=== PATIENT | female | born 1995 | race Caucasian/White ===

== ENCOUNTER 2017-09-06 10:44 | Emergency (ER) | payer SELFPAY ==
[2017-09-06 10:45] VITALS: BP 121/81
[2017-09-06] MEDS ORDERED: ONDA4TAB10 PO (11:30)
--- NOTE | 2017-09-06 11:32 | PHYS DOC ---
General Chief Complaint: NAUSEA/VOMITING/DIARRHEA Stated Complaint: VOMITING Time Seen by MD: 11:29 Source: patient Exam Limitations: no limitations Problems: History of Present Illness Initial Comments Pt is 22/F to ED with 1 day h/o abdominal cramping, n/v. Pt states past day worsening intermittent abdominal cramping, epigastric discomfort, n/v with PO intolerance. Few loose stools, no travel/bad food exposure. No focal abdominal pain complaints, no prearrival treatment. +chills /myalgias, no measured temps, no urinary sx. Timing/Duration: 24 hours Severity: moderate Modifying Factors: worse with eating Associated Symptoms: malaise, nausea/vomiting Allergies: Coded Allergies: No Known Drug Allergies (Unverified , 09/06/17) Past Medical History Medical History: no pertinent history Surgical History: other (CS, tonsillectomy, ankle, D/C) Social History Smoker: cigarettes Alcohol: none Drugs: none Review of Systems Constitutional: see HPI Respiratory: denies cough, denies shortness of breath Cardiovascular: denies chest pain, denies palpitations Gastrointestinal: see HPI Genitourinary: denies dysuria, denies frequency Musculoskeletal: denies back pain, denies joint swelling, denies neck pain Psychiatric/Neurological: denies headache, denies numbness, denies paresthesia Physical Exam General Appearance: WD/WN, mild distress Eyes: bilateral eye normal inspection, bilateral eye PERRL, bilateral eye EOMI Ear, Nose, Throat: hearing grossly normal, normal ENT inspection, normal pharynx Neck: non-tender, supple Respiratory: chest non-tender, lungs clear, normal breath sounds Cardiovascular: normal peripheral pulses, regular rate, rhythm Gastrointestinal: soft (ND, neg mcburney/melgoza, generalized abd muscle TTP no r/g/mass, BS nl) Back: no CVA tenderness, no vertebral tenderness Extremities: non-tender, normal inspection Neurologic/Psychiatric: candy spreader II-XII nml as tested, no motor/sensory deficits, alert, normal mood/affect, oriented x 3 Skin: normal color, warm/dry Orders, Labs, Meds I discussed s/s to monitor and indications for urgent return. Work note/rx provided, pt requests meds/discharge refuses workup. Advised to stop smoking Departure Time of Disposition: 11:30 Disposition: 01 HOME, SELF-CARE Diagnosis: gastroenteritis, likely viral Condition: GOOD Patient Instructions: Viral Gastroenteritis, [id number] Additional Instructions: Off work through September 08, note given. Aggressive hydration with Gatorade or water. [id number] Tylenol or ibuprofen as needed. Prescription: Zofran ODT Follow-up with your doctor in 3-5 days if no improvement. Return to ED with new or changing symptoms. ELSLIE RUBIO DO Sep 06, 2017 11:31
[2017-09-06] MEDS ORDERED: ONDANSETRON ODT 4 MG TAB.RAPDIS PO ONE (12:00)
== END 2017-09-06 11:38 | disposition home or self-care (01) ==
LOC: ER 10:44
DX: K52.9 Noninfective gastroenteritis and colitis, unspecified (principal); F17.210 Nicotine dependence, cigarettes, uncomplicated; Z98.890 Other specified postprocedural states
CPT/HCPCS: 99283; Q0162; 81025

== ENCOUNTER 2017-10-21 20:41 | Emergency (ER) | payer SELFPAY ==
[2017-10-21 20:41] VITALS: BP 109/69
[~2017-10-21 20:41] MED LIST: ONDA4TAB10 PO
--- NOTE | 2017-10-21 21:04 | ED.ADGEN ---
Past History Past Medical History: No Pertinent History Past Surgical History: , Tonsillectomy, Other Alcohol Use: None Drug Use: None Adult General Chief Complaint Chief Complaint " I got really bad dental pain.." HPI HPI Patient is a 22 year old female who presents with dental pain and fx tooth 2. Old fx, but multiple carries and gingivitis. No trismus. No significant adenopathy. No history immunosuppression. Review of Systems Review of Systems Constitutional: Denies fever or chills [] Eyes: Denies change in visual acuity, redness, or eye pain [] HENT: Denies nasal congestion or sore throat [ Complaint of dental pain Respiratory: Denies cough or shortness of breath [] Cardiovascular: No additional information not addressed in HPI [] GI: Denies abdominal pain, nausea, vomiting, bloody stools or diarrhea [] : Denies dysuria or hematuria [] Musculoskeletal: Denies back pain or joint pain [] Integument: Denies rash or skin lesions [] Neurologic: Denies headache, focal weakness or sensory changes [] Endocrine: Denies polyuria or polydipsia [] All other systems were reviewed and found to be within normal limits, except as documented in this note. Family History Family History Noncontributory Current Medications Current Medications Current Medications Medications (Trade) Dose Ordered Sig/Fabiano Start Time Stop Time Status Last Admin Dose Admin Amoxicillin (Amoxil) 500 mg 1X ONCE 10/21/17 21:30 10/21/17 21:31 DC Ketorolac Tromethamine (Toradol) 60 mg 1X ONCE 10/21/17 21:30 10/21/17 21:31 DC Allergies Allergies Allergies Coded Allergies Type Severity Reaction Last Updated Verified No Known Drug Allergies 09/06/17 No Physical Exam Physical Exam Constitutional: Well developed, well nourished, no acute distress, non-toxic appearance. [] HENT: Normocephalic, atraumatic, bilateral external ears normal, oropharynx moist, no oral exudates, nose normal. Dental caries and dental pain as per HPI Eyes: PERRLA, EOMI, conjunctiva normal, no discharge. [] Neck: Normal range of motion, no tenderness, supple, no stridor. [] Cardiovascular:Heart rate regular rhythm, no murmur [] Lungs & Thorax: Bilateral breath sounds equal at apexes with scattered wheezes on auscultation [] Abdomen: Bowel sounds normal, soft, no tenderness, no masses, no pulsatile masses. [] Skin: Warm, dry, no erythema, no rash. [] Back: No tenderness, no CVA tenderness. [] Extremities: No tenderness, no cyanosis, no clubbing, ROM intact, no edema. [] Neurologic: Alert and oriented X 3, normal motor function, normal sensory function, no focal deficits noted. [] Psychologic: Affect normal, judgement normal, mood normal. [] EKG EKG [] Radiology/Procedures Radiology/Procedures [] Course & Med Decision Making Course & Med Decision Making Pertinent Labs and Imaging studies reviewed. (See chart for details). Must follow-up with Dentist. . Take amoxicillin 500 x3 times a day. Take Tylenol and ibuprofen for pain. May take Vicoprofen up 4 times a day for marked pain. Must follow-up [] Final Impression Final Impression 1. Dental Pain[] 2. Dental Carries 3. Fx. Molar 2 Problems: Dragon Disclaimer Dragon Disclaimer This electronic medical record was generated, in whole or in part, using a voice recognition dictation system. KAN CLINE MD Oct 21, 2017 21:04
[2017-10-21] MEDS ORDERED: HYDR-79 PO (21:24)
[2017-10-21] MEDS ORDERED: AMOX-260 PO (21:24)
[2017-10-21] MEDS ORDERED: AMOXICILLIN 250 MG CAPSULE PO ONE (21:30)
[2017-10-21] MEDS ORDERED: KETOROLAC 60 MG/2 ML VIAL. IM ONE (21:30)
== END 2017-10-21 21:35 | disposition home or self-care (01) ==
LOC: ER 20:41
DX: K02.9 Dental caries, unspecified (principal); S02.5XXA Fracture of tooth (traumatic), initial encounter for closed fracture; X58.XXXA Exposure to other specified factors, initial encounter; Y93.89 Activity, other specified; Y99.8 Other external cause status; Y92.89 Other specified places as the place of occurrence of the external cause
CPT/HCPCS: 96372; 99283; J1885

== ENCOUNTER 2017-12-21 23:56 | Emergency (ER) | payer SELFPAY ==
[~2017-12-21] VITALS: Ht 162.6 cm; Wt 72.6 kg
[~2017-12-21 23:56] MED LIST changes: +AMOX-260 PO; +HYDR-79 PO
[2017-12-22 00:05] VITALS: BP 132/86
--- NOTE | 2017-12-22 00:15 | ED.ADGEN ---
Past History Past Medical History: No Pertinent History Past Surgical History: No Surgical History Alcohol Use: Occasionally Drug Use: None Adult General Chief Complaint Chief Complaint " I got bad dental pain... I can't afford the $400 dollars to see the dentist to get these teeth fixed..." " I was here in September for the same thing.. I got this impacted molar.. and flap skin that get food stuck under.. it..." HPI HPI Patient is a 22 year old female who presents with with right molar pain teeth 32 , 31. Patient has a flap of skin over molar 32 which appears to be inflamed. Patient seen previously for the same complaint last month. Patient denies any history of immunosuppression. Patient has no trismus. No adenopathy. Review of Systems Review of Systems Constitutional: Denies fever or chills [] Eyes: Denies change in visual acuity, redness, or eye pain [] HENT: Denies nasal congestion or sore throat []complaints of dental pain Respiratory: Denies cough or shortness of breath [] Cardiovascular: No additional information not addressed in HPI [] GI: Denies abdominal pain, nausea, vomiting, bloody stools or diarrhea [] : Denies dysuria or hematuria [] Musculoskeletal: Denies back pain or joint pain [] Integument: Denies rash or skin lesions [] Neurologic: Denies headache, focal weakness or sensory changes [] Endocrine: Denies polyuria or polydipsia [] All other systems were reviewed and found to be within normal limits, except as documented in this note. Family History Family History Noncontributory Current Medications Current Medications Current Medications Medications (Trade) Dose Ordered Sig/Fabiano Start Time Stop Time Status Last Admin Dose Admin Cephalexin HCl (Keflex) 250 mg STK-MED ONCE 12/22/17 00:37 12/22/17 00:38 DC Ketorolac Tromethamine (Toradol) 60 mg STK-MED ONCE 12/22/17 00:37 12/22/17 00:38 DC Allergies Allergies Allergies Coded Allergies Type Severity Reaction Last Updated Verified No Known Drug Allergies 09/06/17 No Physical Exam Physical Exam Constitutional: Well developed, well nourished, in moderately acute distress, non-toxic appearance. [] HENT: Normocephalic, atraumatic, bilateral external ears normal, oropharynx moist, no oral exudates, nose normal. Dental caries and gingivitis. Primary of pain is molar area 32 and 31. Eyes: PERRLA, EOMI, conjunctiva normal, no discharge. [] Neck: Normal range of motion, no tenderness, supple, no stridor. [] Cardiovascular:Heart rate regular rhythm, no murmur [] Lungs & Thorax: Bilateral breath sounds equal apex with scattered wheezes auscultation [] Abdomen: Bowel sounds normal, soft, no tenderness, no masses, no pulsatile masses. [] Skin: Warm, dry, no erythema, no rash. [] Back: No tenderness, no CVA tenderness. [] Extremities: No tenderness, no cyanosis, no clubbing, ROM intact, no edema. [] Neurologic: Alert and oriented X 3, normal motor function, normal sensory function, no focal deficits noted. [] Psychologic: Affect normal, judgement normal, mood normal. [] Current Patient Data Vital Signs Vital Signs Date Time Temp Pulse Resp B/P (MAP) Pulse Ox O2 Delivery O2 Flow Rate FiO2 12/22/17 00:05 98.7 79 18 95 Room Air Lab Results Laboratory Tests Test 12/22/17 00:20 12/22/17 00:25 12/22/17 02:30 Urine Collection Type Void Urine Color Yellow Urine Clarity Clear Urine pH 5.5 Urine Specific [place] >=1.030 Urine Protein Trace (NEG-TRACE) Urine Glucose (UA) Neg mg/dL (NEG) Urine Ketones (Stick) Neg mg/dL (NEG) Urine Blood Neg (NEG) Urine Nitrite Neg (NEG) Urine Bilirubin Neg (NEG) Urine Urobilinogen Dipstick 0.2 mg/dL (0.2 mg/dL) Urine Leukocyte Esterase Neg (NEG) Urine RBC 0 /HPF (0-2) Urine WBC 0 /HPF (0-4) Urine Squamous Epithelial Cells Occ /LPF Urine Bacteria 0 /HPF (0-FEW) POC Urine HCG, Qualitative hcg negative (Negative) Urine Opiates Screen Neg (NEG) Urine Methadone Screen Neg (NEG) Urine Barbiturates Neg (NEG) Urine Phencyclidine Screen Neg (NEG) Urine Amphetamine/Methamphetamine Neg (NEG) Urine Benzodiazepines Screen Neg (NEG) Urine Cocaine Screen Pos (NEG) Urine Cannabinoids Screen Pos (NEG) Urine Ethyl Alcohol Neg (NEG) EKG EKG [] Radiology/Procedures Radiology/Procedures [] Course & Med Decision Making Course & Med Decision Making Pertinent Labs and Imaging studies reviewed. (See chart for details) Principal mouth with hydrogen peroxide 4 times a day to remove accumulation of fluid debris under skin flap on right posterior molar 32. Take Tylenol and ibuprofen for pain. Take Keflex 500 mg 3 times a day. Must follow-up with dentist. Follow-up at [facility] oral surgery or dental school. [] Final Impression Final Impression 1. Dental Pain[] 2. Dental Carries 3. Gingivitis Problems: Dragon Disclaimer Dragon Disclaimer This electronic medical record was generated, in whole or in part, using a voice recognition dictation system. KAN CLINE MD Dec 22, 2017 00:14
[2017-12-22] MEDS ORDERED: CEPH-264 PO (00:35)
[2017-12-22] MEDS ORDERED: CEPHALEXIN 250 MG CAPSULE ONE (00:37)
[2017-12-22] MEDS ORDERED: KETOROLAC 60 MG/2 ML VIAL. IM ONE ×2 (00:37→00:45)
[2017-12-22] MEDS ORDERED: CEPHALEXIN 250 MG CAPSULE PO ONE (00:45)
[2017-12-22 02:31] LABS: BARBITURATES NEG (NEG); BENZODIAZEPINES NEG (NEG); CANNABINOIDS POS (NEG); COCAINE POS (NEG); METHADONE NEG (NEG); OPIATES NEG (NEG); PHENCYCLIDINE NEG (NEG)
[2017-12-22 02:52] LABS: AMPHETAMINE/METHAMPHETAMINE NEG (NEG)
[2017-12-22 03:03] LABS: BILIRUBIN,URINE NEG (NEG); CLARITY,URINE CLEAR; COLOR,URINE YELLOW; GLUCOSE,URINE NEG (NEG); NITRITE,URINE NEG (NEG); RBC,URINE 0 /HPF (0-2); UROBILINOGEN,URINE 0.2 mg/dL (0.2 mg/dL)
[2017-12-22 03:04] LABS: BACTERIA,URINE 0 /HPF (0-FEW); SQUAMOUS EPITHELIAL CELL,UR OCC /LPF; WBC,URINE 0 /HPF (0-4)
== END 2017-12-22 00:55 | disposition home or self-care (01) ==
LOC: ER 23:56
DX: K02.9 Dental caries, unspecified (principal); K05.10 Chronic gingivitis, plaque induced
CPT/HCPCS: 36415; 80307; 81001; 81025; 96372; 99284; J1885; G0479

== ENCOUNTER 2018-04-12 03:21 | Emergency (ER) | payer SELFPAY ==
[~2018-04-12] VITALS: Ht 162.6 cm; Wt 49.4 kg
[~2018-04-12 03:21] MED LIST changes: +CEPH-264 PO
[2018-04-12 03:31] VITALS: BP 133/73
--- NOTE | 2018-04-12 03:32 | ED.ADGEN ---
Past History Past Medical History: Anxiety, Other Past Surgical History: Tonsillectomy Smoking: Cigarettes Alcohol Use: Occasionally Drug Use: None Adult General Chief Complaint Chief Complaint ".. I got bad teeth from my eating disorder.. and I got the cavities.. I went to [place].. and they want $300.00 dollar to do a root canal....I cant afford it..." HPI HPI Patient is a 23 year old female who presents with above hx and complains of dental pain. Pt. localizes pain in teeth 2, 3 mostly. Has large cavities at these teeth. Patient has multiple other cavities. and dental erosions. Has gingivitis. No trismus. No pointing abscesses. No history immunosuppression. Does smoke. No recent travel. No specific ill contacts. Review of Systems Review of Systems Constitutional: Denies fever or chills [] Eyes: Denies change in visual acuity, redness, or eye pain [] HENT: Denies nasal congestion or sore throat []complaints of dental pain Respiratory: Denies cough or shortness of breath [] Cardiovascular: No additional information not addressed in HPI [] GI: Denies abdominal pain, nausea, vomiting, bloody stools or diarrhea [] : Denies dysuria or hematuria [] Musculoskeletal: Denies back pain or joint pain [] Integument: Denies rash or skin lesions [] Neurologic: Denies headache, focal weakness or sensory changes [] Endocrine: Denies polyuria or polydipsia [] All other systems were reviewed and found to be within normal limits, except as documented in this note. Family History Family History Noncontributory Current Medications Current Medications Current Medications Medications (Trade) Dose Ordered Sig/Fabiano Start Time Stop Time Status Last Admin Dose Admin Cephalexin HCl (Keflex) 500 mg 1X ONCE 04/12/18 03:45 04/12/18 04:09 DC Cephalexin HCl (Startper Pack - Keflex 250mg) 1 startpack 1X ONCE 04/12/18 04:15 04/12/18 04:27 DC 04/12/18 04:11 1 STARTPACK Hydrocodone Bitartrate/ Ibuprofen (Vicoprofen 7.5-200) 2 tab 1X ONCE 04/12/18 03:45 04/12/18 04:27 DC Ketorolac Tromethamine (Toradol) 60 mg STK-MED ONCE 04/12/18 04:06 04/12/18 04:27 DC Oxycodone/ Acetaminophen (Percocet 5/325) 1 tab STK-MED ONCE 04/12/18 04:06 04/12/18 04:27 DC Home meds as per nursing Allergies Allergies Allergies Coded Allergies Type Severity Reaction Last Updated Verified No Known Drug Allergies 09/06/17 No Physical Exam Physical Exam Constitutional: Well developed, well nourished, moderately acute distress, non- toxic appearance. [] HENT: Normocephalic, atraumatic, bilateral external ears normal, oropharynx moist, no oral exudates, nose normal. , multiple caries. Gingivitis. Teeth 2 and 3 and percussion. No pointing abscesses. Eyes: PERRLA, EOMI, conjunctiva normal, no discharge. [] Neck: Normal range of motion, no tenderness, supple, no stridor. [] Cardiovascular:Heart rate regular rhythm, no murmur [] Lungs & Thorax: Bilateral breath sounds equal with scattered wheezes on Auscultation [] Abdomen: Bowel sounds normal, soft, no tenderness, no masses, no pulsatile masses. [] Skin: Warm, dry, no erythema, no rash. [] Back: No tenderness, no CVA tenderness. [] Extremities: No tenderness, no cyanosis, no clubbing, ROM intact, no edema. [] Neurologic: Alert and oriented X 3, normal motor function, normal sensory function, no focal deficits noted. [] Psychologic: Affect anxious, judgement normal, mood normal. [] Current Patient Data Vital Signs Vital Signs Date Time Temp Pulse Resp B/P (MAP) Pulse Ox O2 Delivery O2 Flow Rate FiO2 04/12/18 03:31 97.9 58 20 99 Room Air Lab Results Laboratory Tests Test 04/12/18 02:51 04/12/18 03:50 POC Urine HCG, Qualitative hcg negative (Negative) Urine Opiates Screen Neg (NEG) Urine Methadone Screen Neg (NEG) Urine Barbiturates Neg (NEG) Urine Phencyclidine Screen Neg (NEG) Urine Amphetamine/Methamphetamine Neg (NEG) Urine Benzodiazepines Screen Neg (NEG) Urine Cocaine Screen Neg (NEG) Urine Cannabinoids Screen Pos (NEG) Urine Ethyl Alcohol Neg (NEG) EKG EKG [] Radiology/Procedures Radiology/Procedures [] Course & Med Decision Making Course & Med Decision Making Pertinent Labs and Imaging studies reviewed. (See chart for details) Take Keflex 500 mg 3 times a day. Must follow-up with dentist. Take over-the- counter Tylenol and ibuprofen for pain. Consider follow-up at dental school at [facility] oral surgery for tooth extraction. Nonsmoking. Further narcotics must be refilled by primary care or dentist. [] Final Impression Final Impression 1. Dental Caries 2. Dental Pain[] 3. Tobacco and Marijuana use Dragon Disclaimer Dragon Disclaimer This electronic medical record was generated, in whole or in part, using a voice recognition dictation system. KNA CLINE MD April 12, 2018 03:32
[2018-04-12] MEDS ORDERED: CEPH-264 PO (03:38)
[2018-04-12] MEDS ORDERED: HYDROcodon/IBUPROFEN 7.5/200MG 1 TAB TABLET PO ONE (03:45)
[2018-04-12] MEDS ORDERED: CEPHALEXIN 250 MG CAPSULE PO ONE (03:45)
[2018-04-12] MEDS ORDERED: oxyCODONE/APAP 5/325 1 TAB TABLET PO ONE (04:00)
[2018-04-12] MEDS ORDERED: KETOROLAC 60 MG/2 ML VIAL. IM ONE ×2 (04:00→04:06)
[2018-04-12] MEDS ORDERED: CEPHALEXIN 250MG 4CAPSULE STARTPACK. PO ONE ×2 (04:06→04:15)
[2018-04-12] MEDS ORDERED: oxyCODONE/APAP 5/325 1 TAB TABLET ONE (04:06)
[2018-04-12 04:23] LABS: BARBITURATES NEG (NEG); BENZODIAZEPINES NEG (NEG); CANNABINOIDS POS (NEG); COCAINE NEG (NEG); METHADONE NEG (NEG); OPIATES NEG (NEG); PHENCYCLIDINE NEG (NEG)
[2018-04-12 04:28] LABS: AMPHETAMINE/METHAMPHETAMINE NEG (NEG)
== END 2018-04-12 04:27 | disposition home or self-care (01) ==
LOC: ER 03:21
DX: K02.9 Dental caries, unspecified (principal); F12.90 Cannabis use, unspecified, uncomplicated; F17.210 Nicotine dependence, cigarettes, uncomplicated; F41.9 Anxiety disorder, unspecified
CPT/HCPCS: 36415; 80307; 81025; 96372; 99283; J1885; G0479

== ENCOUNTER 2018-07-23 17:32 | Emergency (ER) | payer SELFPAY ==
[~2018-07-23] VITALS: Ht 162.6 cm; Wt 62.6 kg
[2018-07-23 18:28] LABS: BILIRUBIN,URINE NEG (NEG); CLARITY,URINE CLOUDY; COLOR,URINE AMBER; GLUCOSE,URINE NEG (NEG); NITRITE,URINE NEG (NEG); UROBILINOGEN,URINE 0.2 mg/dL (0.2 mg/dL)
[2018-07-23 18:29] LABS: BACTERIA,URINE 0 /HPF (0-FEW); RBC,URINE RARE /HPF (0-2); SQUAMOUS EPITHELIAL CELL,UR FEW /LPF; TRICHOMONAS,URINE PRESENT
--- NOTE | 2018-07-23 18:36 | ED.ADGEN ---
Past History Past Medical History: Anxiety, Other Past Surgical History: Tonsillectomy Smoking: Cigarettes Alcohol Use: Occasionally Drug Use: None Adult General Chief Complaint Chief Complaint Vaginal pain and discharge, left breast redness and pain HPI HPI Patient presents with left breast pain and vaginal irritation. Patient noted onset of left breast erythema and tenderness 4 days ago, no drainage or fevers. She has prior history of mastitis 4 years ago. Patient also complains of having vaginal irritation and discharge for the last week. She has a new sexual partner over the past month and since then, she's developed vaginal irritation and discharge, no vaginal bleeding She denies nausea, vomiting or diarrhea. She has no URI complaints. No chest pain or shortness of breath. She does have dysuria which she's had for the past week. LMP- Review of Systems Review of Systems Constitutional: Denies fever or chills Eyes: Denies change in visual acuity, redness, or eye pain HENT: Denies nasal congestion or sore throat Respiratory: Denies cough or shortness of breath Cardiovascular: Denies chest pain or palpations GI: Denies abdominal pain, nausea, vomiting, bloody stools or diarrhea : With dysuria and vaginal discharge Musculoskeletal: Denies back pain or joint pain Integument: Denies rash with left breast redness and swelling Neurologic: Denies headache, focal weakness or sensory changes Endocrine: Denies polyuria or polydipsia All other systems were reviewed and found to be within normal limits, except as documented in this note. Current Medications Current Medications Current Medications Medications (Trade) Dose Ordered Sig/Fabiano Start Time Stop Time Status Last Admin Dose Admin Acyclovir (Zovirax) 800 mg 1X ONCE 07/23/18 20:00 07/23/18 20:02 DC 07/23/18 20:50 800 MG Azithromycin (Zithromax) 1,000 mg 1X ONCE 07/23/18 20:00 07/23/18 20:02 DC 07/23/18 20:50 1,000 MG Ceftriaxone Sodium (Rocephin Im) 1 gm 1X ONCE 07/23/18 20:00 07/23/18 20:02 DC 07/23/18 20:49 1 GM Lidocaine HCl 20 ml STK-MED ONCE 07/23/18 20:09 07/23/18 20:10 DC Allergies Allergies Allergies Coded Allergies Type Severity Reaction Last Updated Verified No Known Drug Allergies 09/06/17 No Physical Exam Physical Exam Constitutional: Well developed, well nourished, no acute distress, non-toxic appearance. HENT: Normocephalic, atraumatic, bilateral external ears normal, oropharynx moist, no oral exudates, nose normal. Eyes: PERRLA, EOMI, conjunctiva normal, no discharge. Neck: Normal range of motion, no tenderness, supple, no stridor. Cardiovascular:Heart rate regular rhythm, no murmur Lungs & Thorax: Bilateral breath sounds clear to auscultation Abdomen: Bowel sounds normal, soft, Mild suprapubic tenderness, no masses, no pulsatile masses. : Pelvic- Chin Leiva External genitalia with erythema and swelling with copious ned yellow vaginal discharge. Speculum with pain and ned yellow discharge. cervix with mucosal inflammation. bimanual with mild CMT, uterine tenderness and bilateral adnexal tenderness to palpation Skin: Warm, dry, no rash with left breast focal erythema and swelling at 8 o' clock 3x3cm area with fluctuance Back: No tenderness, no CVA tenderness. Extremities: No tenderness, no cyanosis, no clubbing, ROM intact, no edema. Neurologic: Alert and oriented X 3, normal motor function, normal sensory function, no focal deficits noted. Psychologic: Affect normal, judgement normal, mood normal. Current Patient Data Vital Signs Vital Signs Date Time Temp Pulse Resp B/P (MAP) Pulse Ox O2 Delivery O2 Flow Rate FiO2 07/23/18 22:20 79 16 133/73 (93) 98 Room Air 07/23/18 17:35 98.7 Lab Results Laboratory Tests Test 07/23/18 17:17 07/23/18 17:56 POC Urine HCG, Qualitative hcg negative (Negative) Urine Collection Type Unknown Urine Color Tonya Urine Clarity Cloudy Urine pH 6.5 Urine Specific [place] 1.025 Urine Protein Neg (NEG-TRACE) Urine Glucose (UA) Neg mg/dL (NEG) Urine Ketones (Stick) Neg mg/dL (NEG) Urine Blood Neg (NEG) Urine Nitrite Neg (NEG) Urine Bilirubin Neg (NEG) Urine Urobilinogen Dipstick 0.2 mg/dL (0.2 mg/dL) Urine Leukocyte Esterase Trace (NEG) Urine RBC Rare /HPF (0-2) Urine WBC 5-10 /HPF (0-4) Urine Squamous Epithelial Cells Few /LPF Urine Bacteria 0 /HPF (0-FEW) Urine Trichomonas Present Urine Test Negative (NEG) Microbiology 07/23/18 Wet Prep - Final, Complete EKG EKG [] Radiology/Procedures Radiology/Procedures [] Course & Med Decision Making Course & Med Decision Making Emergency Department Course Patient presents with vaginal pain and discharge with left breast abscess DDx- PID, chlamydia, gonorrhea, trichomoniasis, vaginitis, Herpes, abscess, MRSA The patient was stable in the ED. Pelvic exam consistent with PID with noted vaginosis and trichomoniasis. U/A with WBCs. Patient was given Rocephin IM, Azithromycin and Flagyl. Patient was given Acyclovir for possible Herpes. Left breast abscess was drained with packing placed. Patient will be placed on doxycycline for PID. This also has activity against possible MRSA. I spoke with the patient and gave her results and advised she follow-up with her PCP and inform her partner who needs to be treated. Patient was advised to return to the ED if she develops worse pain, fevers, vomiting, shortness of breath or bleeding. Final Impression Final Impression Clinical Impression PID Vaginal Discharge Bacterial Vaginosis Trichomoniasis Vaginitis Left breast abscess Sagar Disclaimer Sagar Disclaimer This electronic medical record was generated, in whole or in part, using a voice recognition dictation system. Departure Departure: Impression: Primary Impression: PID (acute pelvic inflammatory disease) Additional Impressions: Vaginal discharge Left breast abscess Trichomonal vaginitis Bacterial vaginosis Disposition: 01 HOME, SELF-CARE Condition: STABLE Referrals: ÁLVARO VASQUEZ MD Follow-up tomorrow for further evaluation Patient Instructions: Abscess, [id number], Bacterial Vaginosis, [id number] , Pelvic Inflammatory Disease, [id number], Trichomoniasis, Vaginitis, Easy-to- Read Scripts Ibuprofen (IBUPROFEN) 800 Mg Tablet 800 MG PO TID for 3 Days, #9 TAB Prov: BENITA CONN MD 07/23/18 Acyclovir (ACYCLOVIR) 800 Mg Tablet 1 TAB PO 5XDAY, #35 TAB Prov: BENITA CONN MD 07/23/18 Metronidazole (FLAGYL) 500 Mg Tablet 1 TAB PO BID for 7 Days, #14 TAB Prov: BENITA CONN MD 07/23/18 Doxycycline Monohydrate (DOXYCYCLINE MONOHYDRATE) 100 Mg Capsule 1 CAP PO BID, #20 CAP Prov: BENITA CONN MD 07/23/18 Incision and Drainage 22:00 Paty Leiva RN Indication:Left breast abscess Procedure: The patient was positioned appropriately and the skin over the incision site was prepped with Betadine. Local anesthesia was 1% lidocaine 5ml dermal injection. An 11 blade 1 cm incision was then made over the pointing aspect of abscess with ned pus expressed. Loculations were were broken with needle driver recruiter. The drainage cavity was then irrigated with normal saline with tincture of Betadine. The patient tolerated the procedure well. Complications: no complications BENITA CONN MD Jul 23, 2018 18:36
[2018-07-23 18:44] LABS: U PREG PATIENT NEGATIVE (NEG)
[2018-07-23] MEDS ORDERED: cefTRIAXone IM 1 GM VIAL IM ONE (20:00)
[2018-07-23] MEDS ORDERED: ACYCLOVIR 200 MG CAPSULE PO ONE (20:00)
[2018-07-23] MEDS ORDERED: AZITHROMYCIN 250 MG TABLET. PO ONE (20:00)
[2018-07-23] MEDS ORDERED: LIDOCAINE 2% 20 ML VIAL. ONE (20:09)
[2018-07-23] MEDS ORDERED: DOXY100C14 PO (22:11)
[2018-07-23] MEDS ORDERED: ACYC800T PO (22:11)
[2018-07-23] MEDS ORDERED: METR500T PO (22:11)
[2018-07-23] MEDS ORDERED: IBUP800T19 PO (22:11)
[2018-07-23 22:20] VITALS: BP 133/73
[2018-07-25 14:09] LABS: CHLAMYDIA PROBE Negative (Negative)
== END 2018-07-23 22:24 | disposition home or self-care (01) ==
LOC: ER 17:32
DX: N73.9 Female pelvic inflammatory disease, unspecified (principal); N61.1 Abscess of the breast and nipple; A59.01 Trichomonal vulvovaginitis; N76.0 Acute vaginitis; B96.89 Other specified bacterial agents as the cause of diseases classified elsewhere; F41.9 Anxiety disorder, unspecified; F17.210 Nicotine dependence, cigarettes, uncomplicated
CPT/HCPCS: 10060; 36415; 81001; 81025; 87086; 87491; 87591; 96372; 99284; J0456; J0696; Q0111

== ENCOUNTER 2018-08-13 16:06 | Emergency (ER) | payer SELFPAY ==
[~2018-08-13] VITALS: Ht 162.6 cm; Wt 60.8 kg
[~2018-08-13 16:06] MED LIST changes: +ACYC800T PO; +DOXY100C14 PO; +IBUP800T19 PO; +METR500T PO
[2018-08-13] MEDS ORDERED: ONDANSETRON PF 4 MG/2 ML VIAL. ONE (16:59)
[2018-08-13] MEDS: IV NORMAL SALINE 1,000ML 1,000 ML IV ONE (17:03)
[2018-08-13] MEDS: ONDANSETRON PF 4 MG/2 ML VIAL. IV ONE ×2 (17:04→18:07)
[2018-08-13 17:09] LABS: BASO % 1 % (0-3); EOS # 0.1 x10^3/uL (0.0-0.7); EOS % 3 % (0-3); HEMATOCRIT 48.8 % (36.0-47.0); HEMOGLOBIN 16.5 g/dL (12.0-15.5); LYMPH # 1.5 x10^3/uL (1.0-4.8); LYMPH % 36 % (24-48); MEAN CORPUSCULAR HEMOGLOBIN 30 pg (25-35); MEAN CORPUSCULAR HGB CONC 34 g/dL (31-37); MEAN CORPUSCULAR VOLUME 90 fL (79-100); MONO # 0.7 x10^3/uL (0.0-1.1); MONO % 17 % (0-9); NEUT # 1.8 x10^3uL (1.8-7.7); NEUT % 42 % (31-73); PLATELET COUNT 132 x10^3/uL (140-400); RED BLOOD COUNT 5.42 x10^6/uL (3.50-5.40); RED CELL DISTRIBUTION WIDTH 13.3 % (11.5-14.5); WHITE BLOOD COUNT 4.2 x10^3/uL (4.0-11.0)
[2018-08-13 17:17] LABS: ALBUMIN 3.9 g/dL (3.4-5.0); ALBUMIN/GLOBULIN RATIO 1.2 (1.0-1.7); CALCIUM 9.1 mg/dL (8.5-10.1); CREATININE 0.7 mg/dL (0.6-1.0); GFR 102.8; POTASSIUM 3.8 mmol/L (3.5-5.1); TOTAL BILIRUBIN 1.5 mg/dL (0.2-1.0); TOTAL PROTEIN 7.1 g/dL (6.4-8.2)
[2018-08-13 17:22] LABS: BILIRUBIN,URINE NEG (NEG); CLARITY,URINE CLOUDY; COLOR,URINE YELLOW; GLUCOSE,URINE NEG (NEG)
[2018-08-13 17:23] LABS: BACTERIA,URINE FEW /HPF (0-FEW); NITRITE,URINE NEG (NEG); RBC,URINE >40 /HPF (0-2); SQUAMOUS EPITHELIAL CELL,UR MANY /LPF; TRICHOMONAS,URINE PRESENT; U PREG PATIENT NEGATIVE (NEG); UROBILINOGEN,URINE 0.2 mg/dL (0.2 mg/dL)
--- NOTE | 2018-08-13 17:50 | PHYS DOC ---
Past History Past Medical History: Anxiety Past Surgical History: , Tonsillectomy, Other Smoking: Cigarettes Alcohol Use: None Drug Use: None Adult General Chief Complaint Chief Complaint: NAUSEA/VOMITING/DIARRHEA HPI HPI 23-year-old female presents with nausea, vomiting and general body aches for the last 3 days. The patient has had a fever up to 101. She assumed she had a viral illness, but has not gone away. She is having difficulty keeping any fluids down at this time. She is concern for dehydration. She denies dysuria or increased shortness frequency. She is on her menses at this time. She is sexually active. Review of Systems Review of Systems Constitutional: Denies fever or chills [] Eyes: Denies change in visual acuity, redness, or eye pain [] HENT: Denies nasal congestion or sore throat [] Respiratory: Denies cough or shortness of breath [] Cardiovascular: No additional information not addressed in HPI [] GI: Nausea, vomiting[] : Denies dysuria or hematuria [] Musculoskeletal: Generalized body aches[] Integument: Denies rash or skin lesions [] Neurologic: Denies headache, focal weakness or sensory changes [] Endocrine: Denies polyuria or polydipsia [] All other systems were reviewed and found to be within normal limits, except as documented in this note. Current Medications Current Medications Current Medications Medications (Trade) Dose Ordered Sig/Fabiano Start Time Stop Time Status Last Admin Dose Admin Ondansetron HCl (Zofran) 4 mg STK-MED ONCE 08/13/18 16:59 08/13/18 17:00 DC Sodium Chloride 1,000 ml @ 1,000 mls/hr 1X ONCE 08/13/18 17:00 08/13/18 17:59 08/13/18 17:03 1,000 MLS/HR Allergies Allergies Allergies Coded Allergies Type Severity Reaction Last Updated Verified No Known Drug Allergies 08/13/18 No Physical Exam Physical Exam Constitutional: Well developed, well nourished, no acute distress, non-toxic appearance. [] HENT: Normocephalic, atraumatic, bilateral external ears normal, oropharynx moist, no oral exudates, nose normal. [] Eyes: PERRLA, EOMI, conjunctiva normal, no discharge. [] Neck: Normal range of motion, no tenderness, supple, no stridor. [] Cardiovascular:Heart rate regular rhythm, no murmur [] Lungs & Thorax: Bilateral breath sounds clear to auscultation [] Abdomen: Suprapubic tenderness.[] Skin: Warm, dry, no erythema, no rash. [] Back: No tenderness, no CVA tenderness. [] Extremities: No tenderness, no cyanosis, no clubbing, ROM intact, no edema. [] Neurologic: Alert and oriented X 3, normal motor function, normal sensory function, no focal deficits noted. [] Psychologic: Affect normal, judgement normal, mood normal. [] Current Patient Data Vital Signs Vital Signs Date Time Temp Pulse Resp B/P (MAP) Pulse Ox O2 Delivery O2 Flow Rate FiO2 08/13/18 16:17 98.8 91 18 99 Room Air Lab Results Laboratory Tests Test 08/13/18 16:00 08/13/18 16:45 Urine Collection Type Unknown Urine Color Yellow Urine Clarity Cloudy Urine pH 6.0 Urine Specific [place] 1.015 Urine Protein 30 mg/dl (NEG-TRACE) Urine Glucose (UA) Neg mg/dL (NEG) Urine Ketones (Stick) Neg mg/dL (NEG) Urine Blood Large (NEG) Urine Nitrite Neg (NEG) Urine Bilirubin Neg (NEG) Urine Urobilinogen Dipstick 0.2 mg/dL (0.2 mg/dL) Urine Leukocyte Esterase Mod (NEG) Urine RBC >40 /HPF (0-2) Urine WBC 11-20 /HPF (0-4) Urine Squamous Epithelial Cells Many /LPF Urine Bacteria Few /HPF (0-FEW) Urine Trichomonas Present Urine Test Negative (NEG) White Blood Count 4.2 x10^3/uL (4.0-11.0) Red Blood Count 5.42 x10^6/uL (3.50-5.40) H Hemoglobin 16.5 g/dL (12.0-15.5) H Hematocrit 48.8 % (36.0-47.0) H Mean Corpuscular Volume 90 fL (79-100) Mean Corpuscular Hemoglobin 30 pg (25-35) Mean Corpuscular Hemoglobin Concent 34 g/dL (31-37) Red Cell Distribution Width 13.3 % (11.5-14.5) Platelet Count 132 x10^3/uL (140-400) L Neutrophils (%) (Auto) 42 % (31-73) Lymphocytes (%) (Auto) 36 % (24-48) Monocytes (%) (Auto) 17 % (0-9) H Eosinophils (%) (Auto) 3 % (0-3) Basophils (%) (Auto) 1 % (0-3) Neutrophils # (Auto) 1.8 x10^3uL (1.8-7.7) Lymphocytes # (Auto) 1.5 x10^3/uL (1.0-4.8) Monocytes # (Auto) 0.7 x10^3/uL (0.0-1.1) Eosinophils # (Auto) 0.1 x10^3/uL (0.0-0.7) Basophils # (Auto) 0.0 x10^3/uL (0.0-0.2) Sodium Level 140 mmol/L (136-145) Potassium Level 3.8 mmol/L (3.5-5.1) Chloride Level 104 mmol/L (98-107) Carbon Dioxide Level 24 mmol/L (21-32) Anion Gap 12 (6-14) Blood Urea Nitrogen 6 mg/dL (7-20) L Creatinine 0.7 mg/dL (0.6-1.0) Estimated GFR (Cockcroft-Gault) 102.8 BUN/Creatinine Ratio 9 (6-20) Glucose Level 84 mg/dL (70-99) Calcium Level 9.1 mg/dL (8.5-10.1) Total Bilirubin 1.5 mg/dL (0.2-1.0) H Aspartate Amino Transferase (AST) 37 U/L (15-37) Alanine Aminotransferase (ALT) 51 U/L (14-59) Alkaline Phosphatase 106 U/L (46-116) Total Protein 7.1 g/dL (6.4-8.2) Albumin 3.9 g/dL (3.4-5.0) Albumin/Globulin Ratio 1.2 (1.0-1.7) Lipase 66 U/L (73-393) L EKG EKG [] Radiology/Procedures Radiology/Procedures [] Course & Med Decision Making Course & Med Decision Making Pertinent Labs and Imaging studies reviewed. (See chart for details) The patient's labs show some hemoconcentration. We have given her 1 L normal saline. The rest for labs are unremarkable. Her urinalysis is negative for infection, but it is positive for Trichomonas. I will treat her with metronidazole 2 g in the ED. I'll discharge her with Compazine prescription for nausea and vomiting. Dragon Disclaimer Dragon Disclaimer This electronic medical record was generated, in whole or in part, using a voice recognition dictation system. Departure Departure: Referrals: PCP,NO (PCP) MILTON LÓPEZ DO Aug 13, 2018 17:50
[2018-08-13] MEDS ORDERED: PROC10TA57 PO (18:02)
[2018-08-13] MEDS: metroNIDAZOLE 500 MG TABLET PO ONE (18:07)
[2018-08-13 18:08] VITALS: BP 101/69
== END 2018-08-13 18:12 | disposition home or self-care (01) ==
LOC: ER 16:06
DX: R11.2 Nausea with vomiting, unspecified (principal); R79.89 Other specified abnormal findings of blood chemistry; A59.9 Trichomoniasis, unspecified; F17.210 Nicotine dependence, cigarettes, uncomplicated
CPT/HCPCS: 36415; 80053; 81001; 81025; 83690; 85025; 87086; 96361; 96374; 96376; 99284; J2405; J7030

== ENCOUNTER 2018-10-03 11:05 | Emergency (ER) | payer SELFPAY ==
[~2018-10-03] VITALS: Ht 162.6 cm; Wt 61.2 kg
[~2018-10-03 11:05] MED LIST changes: +PROC10TA57 PO
[2018-10-03 11:10] VITALS: BP 149/84
[2018-10-03] MEDS ORDERED: IBUPROFEN 600 MG TABLET. PO ONE (12:00)
[2018-10-03] MEDS ORDERED: LIDOCAINE 2% 20 ML VIAL. IJ ONE (12:00)
[2018-10-03] MEDS ORDERED: IBUP600T16 PO (12:01)
[2018-10-03] MEDS ORDERED: HYDR-971 PO (12:01)
[2018-10-03] MEDS ORDERED: SULF1TAB24 PO (12:01)
--- NOTE | 2018-10-03 12:02 | PHYS DOC ---
Past History Past Medical History: No Pertinent History Past Surgical History: , Tonsillectomy Smoking: Cigarettes Alcohol Use: None Drug Use: None Adult General Chief Complaint Chief Complaint: ABSCESS HPI HPI Patient is a 23 year old female who presents with of abscess of pubic area for the last 2 days as a constant and very painful lesion without drainage of pus, fever and chills, history of the same problem or MRSA infection. She is up-to- date with tetanus immunization. Review of Systems Review of Systems Constitutional: Denies fever or chills [] Eyes: Denies change in visual acuity, redness, or eye pain [] HENT: Denies nasal congestion or sore throat [] Respiratory: Denies cough or shortness of breath [] Cardiovascular: No additional information not addressed in HPI [] GI: Denies abdominal pain, nausea, vomiting, bloody stools or diarrhea [] : Denies dysuria or hematuria [] Musculoskeletal: Denies back pain or joint pain [] Integument: Denies rash, reports skin lesions [] Neurologic: Denies headache, focal weakness or sensory changes [] Endocrine: Denies polyuria or polydipsia [] All other systems were reviewed and found to be within normal limits, except as documented in this note. Current Medications Current Medications Current Medications Medications (Trade) Dose Ordered Sig/Fabiano Start Time Stop Time Status Last Admin Dose Admin Ibuprofen (Motrin) 600 mg 1X ONCE 10/03/18 12:00 10/03/18 12:01 10/03/18 11:39 600 MG Lidocaine HCl 20 ml 1X ONCE 10/03/18 12:00 10/03/18 12:01 10/03/18 11:52 20 ML Allergies Allergies Allergies Coded Allergies Type Severity Reaction Last Updated Verified No Known Drug Allergies 08/13/18 No Physical Exam Physical Exam Constitutional: Well developed, well nourished, mild distress, non-toxic appearance. [] HENT: Normocephalic, atraumatic. Eyes: PERRLA, EOMI, conjunctiva normal, no discharge. [] Neck: Normal range of motion, no tenderness, supple, no stridor. [] Cardiovascular:Heart rate regular rhythm, no murmur [] Lungs & Thorax: Bilateral breath sounds clear to auscultation [] Abdomen: Bowel sounds normal, soft, no tenderness, no masses, no pulsatile masses. [] Skin: Warm, dry, 3 x 3 centimeters abscess in left side of the pubic area with central fluctuation and tenderness Back: No tenderness, no CVA tenderness. [] Extremities: No tenderness, no cyanosis, no clubbing, ROM intact, no edema. [] Neurologic: Alert and oriented X 3, normal motor function, normal sensory function, no focal deficits noted. [] Psychologic: Affect normal, judgement normal, mood normal. [] Current Patient Data Vital Signs Vital Signs Date Time Temp Pulse Resp B/P (MAP) Pulse Ox O2 Delivery O2 Flow Rate FiO2 10/03/18 11:10 98.4 85 16 100 Room Air EKG EKG [] Radiology/Procedures Radiology/Procedures [] Course & Med Decision Making Course & Med Decision Making discharge: I've spoken with the patient and/or caregivers. I've explained the patient's condition, diagnosis and treatment plan based on information available to me at this time. I've answered the patient's and/or caregivers questions and addressed any concerns. The patient and/or caregivers have a good understanding the patient's diagnosis, condition and treatment plan as can be expected at this point. Vital signs have been stabilized. The patient's condition is stable for discharge from the emergency department. The patient will pursue further outpatient evaluation with her primary care provider or other designated consulting physician as outlined in the discharge instructions. Patient and/or caregivers are agreeable to this plan of care and follow-up instructions have been explained in detail. The patient and/or caregivers have received these instructions in written format and expressed understanding of these discharge instructions. The patient and her caregivers are aware that if any significant change in condition or worsening of symptoms should prompt him to immediately return to this of the closest emergency department. If an emergent department is not readily available I would encourage him to call 911. Sagar Disclaimer Dragon Disclaimer This electronic medical record was generated, in whole or in part, using a voice recognition dictation system. Incision and Drainage Indication: Pubic abscess Procedure: The patient was positioned appropriately and the skin over the incision site was prepped with normal saline. Local anesthesia was 3 ml of 2% lidocaine without epinephrine. An incision was then made over the left pubic abscess and moderate amount posy material was expressed. Loculations were moved with Q-tip. The drainage cavity was then irrigated and packed with iodoform]. The patients tetanus status up-to-date. The patient tolerated the procedure well Complications: none. Departure Departure: Impression: Primary Impression: Abscess of pubic region Additional Impressions: Tobacco abuse Tobacco abuse counseling Disposition: HOME, SELF-CARE (at 1158) Condition: IMPROVED Referrals: AIMEE LEVY (PCP) Patient Instructions: Abscess, Abscess, Care After, Community-Associated MRSA Additional Instructions: Change dressing twice a day and as needed Return to emergency room in 2 days for removing the packing or remove it by yourself Follow-up with your primary care physician in 3-5 days Return to ER if not getting better Scripts Hydrocodone Bit/Acetaminophen ([place] 5-325 TABLET) 1 Each Tablet 1 TAB PO PRN Q6HRS PRN for PAIN, #10 TAB 0 Refills Prov: BYRON SPENCER MD 10/03/18 Ibuprofen (IBUPROFEN) 600 Mg Tablet 600 MG PO TID for pain, #20 TAB Prov: BYRON SPENCER MD 10/03/18 Sulfamethoxazole/Trimethoprim (BACTRIM DS TABLET) 1 Each Tablet 1 TAB PO BID for infection, #14 TAB Prov: BYRON SPENCER MD 10/03/18 Problem Qualifiers BYRON SPENCER MD Oct 03, 2018 12:02
== END 2018-10-03 12:11 | disposition home or self-care (01) ==
LOC: ER 11:05
DX: N76.4 Abscess of vulva (principal); F17.210 Nicotine dependence, cigarettes, uncomplicated; Z71.6 Tobacco abuse counseling; Z98.890 Other specified postprocedural states
CPT/HCPCS: 56405; 99284; J2001

== ENCOUNTER 2018-11-21 20:29 | Emergency (ER) | payer SELFPAY ==
[~2018-11-21] VITALS: Ht 162.6 cm; Wt 68.6 kg
[2018-11-21 20:29] VITALS: BP 127/64
[~2018-11-21 20:29] MED LIST changes: +HYDR-1179 PO; +HYDR-3165 PO; -HYDR-79 PO; +IBUP600T16 PO; +SULF1TAB24 PO
--- NOTE | 2018-11-21 20:57 | ED.ADGEN ---
Past History Past Medical History: Ovarian Cyst, STD, Other Past Surgical History: , Tonsillectomy Smoking: Cigarettes Alcohol Use: None Drug Use: None Adult General Chief Complaint Chief Complaint ".. I got this sore on my lip.. I left [facility] because they were taking so long.. and I got a sore throat...." HPI HPI Patient is a 23 year old female who presents with above complaints of upper and lower lip herpetic lesion on Lt side of mouth. . Pt. does have a history of prior herpetic lesions - was diagnosed as fever blisters. Patient denies any history immunosuppression. No recent travel. Patient gives no hx of specific ill contact history . . Patient became very upset when I asked patient if she ever had prior herpetic lesions, stating she did not like these questions in front of her 4-year-old son who she brought into the room with her. Pt. declined to have strept or flu testing. Did offer pt. Rx. for acyclovir topically. Rx for Acyclovir orally could also be given. Pt. declined and left. Pt. felt something should be done immediately to treat the herpetic lesion. Pt. unhappy she could not be treated with a narcotic med to relieve the pain immediately. Pt. advised to return if she wished further evaluation. Pt. advised further history taking could be completed when her son was not present if she wanted complete privacy and not have any history taking in front of her son. Review of Systems Review of Systems Constitutional: Denies fever or chills [] Eyes: Denies change in visual acuity, redness, or eye pain [] HENT: History of nasal congestion, sore throat and herpetic lesion. Respiratory: Denies cough or shortness of breath [] Cardiovascular: No additional information not addressed in HPI [] GI: Denies abdominal pain, nausea, vomiting, bloody stools or diarrhea [] : Denies dysuria or hematuria [] Musculoskeletal: Denies back pain or joint pain [] Integument: Denies rash or skin lesions [] Neurologic: Denies headache, focal weakness or sensory changes [] Endocrine: Denies polyuria or polydipsia [] All other systems were reviewed and found to be within normal limits, except as documented in this note. Family History Family History Noncontributory Current Medications Current Medications See nursing for home meds Allergies Allergies Allergies Coded Allergies Type Severity Reaction Last Updated Verified No Known Drug Allergies 08/13/18 No Physical Exam Physical Exam Constitutional: Well developed, well nourished, moderate acute distress, non- toxic appearance. [] HENT: Normocephalic, atraumatic, bilateral external ears normal, oropharynx moist, mild injection of pharynx no oral exudates, nose clear rhinorrhea. Herpetic lip lesion Eyes: PERRLA, EOMI, conjunctiva normal, no discharge. [] Neck: Normal range of motion, no tenderness, supple, no stridor. [] Cardiovascular:Heart rate regular rhythm, no murmur [] Lungs & Thorax: Bilateral breath sounds equal at apexes with a few scattered wheezes on auscultation [] Abdomen: Bowel sounds normal, soft, no tenderness, no masses, no pulsatile masses. [] Old surgery scar. Skin: Warm, dry, no erythema, no rash. [] Back: No tenderness, no CVA tenderness. [] Extremities: No tenderness, no cyanosis, no clubbing, ROM intact, no edema. [] Neurologic: Alert and oriented X 3, normal motor function, normal sensory function, no focal deficits noted. [] Psychologic: Affect angry, judgement normal, mood normal. [] Current Patient Data Vital Signs Vital Signs Date Time Temp Pulse Resp B/P (MAP) Pulse Ox O2 Delivery O2 Flow Rate FiO2 11/21/18 20:29 98.4 78 16 100 Room Air EKG EKG [] Radiology/Procedures Radiology/Procedures [] Course & Med Decision Making Course & Med Decision Making Pertinent Labs and Imaging studies reviewed. (See chart for details). Patient take [id number] Tylenol and ibuprofen for pain. Return without her son if she wished to have further history taken not in the present of her 4 yrs. old son. Keep followup with primary. [] Final Impression Final Impression 1. Viral Syndrome 2. Fever Blister- Herpetic[]lesion. Dragon Disclaimer Dragon Disclaimer This electronic medical record was generated, in whole or in part, using a voice recognition dictation system. Dragon Disclaimer This chart was dictated in whole or in part using Voice Recognition software in a busy, high-work load, and often noisy Emergency Department environment. It may contain unintended and wholly unrecognized errors or omissions. Discharge Summary Visit Information Final Diagnosis Problems Medical Problems: (1) Herpetic gingivostomatitis Status: Acute Brief Hospital Course Allergies Allergies Coded Allergies Type Severity Reaction Last Updated Verified No Known Drug Allergies 08/13/18 No Vital Signs Vital Signs Date Time Temp Pulse Resp B/P (MAP) Pulse Ox O2 Delivery O2 Flow Rate FiO2 11/21/18 20:29 98.4 78 16 100 Room Air Brief Hospital Course Ms. Mota is a 23 old female who presented with herpetic lesion on lips. Discharge Information Condition at Discharge: Stable Disposition/Orders: D/C to Home Dischare Medications Active Scripts Active [place] 5-325 Tablet (Hydrocodone Bit/Acetaminophen) 1 Each Tablet 1 Tab PO PRN Q6HRS PRN Ibuprofen 600 Mg Tablet 600 Mg PO TID Bactrim Ds Tablet (Sulfamethoxazole/Trimethoprim) 1 Each Tablet 1 Tab PO BID Compazine (Prochlorperazine Maleate) 10 Mg Tablet 10 Mg PO Q6HRS PRN Ibuprofen 800 Mg Tablet 800 Mg PO TID 3 Days Acyclovir 800 Mg Tablet 1 Tab PO 5XDAY Flagyl (Metronidazole) 500 Mg Tablet 1 Tab PO BID 7 Days Doxycycline Monohydrate 100 Mg Capsule 1 Cap PO BID Keflex (Cephalexin) 500 Mg Capsule 500 Mg PO TID Keflex (Cephalexin) 500 Mg Capsule 500 Mg PO TID 10 Days Amoxicillin 250 Mg Capsule 500 Mg PO TID 10 Days Hydrocodone-Ibuprofen 7.5-200 (Hydrocodone/Ibuprofen) 1 Each Tablet 1 Tab PO PRN Q6HRS PRN Zofran Odt (Ondansetron) 4 Mg Tab.rapdis 4 Mg PO Q4-6HRS PRN KAN CLINE MD Nov 21, 2018 20:57
== END 2018-11-21 20:45 | disposition home or self-care (01) ==
LOC: ER 20:29
DX: B34.9 Viral infection, unspecified (principal); B00.2 Herpesviral gingivostomatitis and pharyngotonsillitis; F17.210 Nicotine dependence, cigarettes, uncomplicated; Z90.89 Acquired absence of other organs
CPT/HCPCS: 99281